=== PATIENT | male | born 1980 | race Caucasian/White ===

== ENCOUNTER 2019-10-04 16:41 | Observation (INO) | payer OTHER ==
[2019-10-04] MEDS ORDERED: PANTOPRAZOLE 40 MG/10 ML VIAL IVP STA (17:19)
[2019-10-04] MEDS ORDERED: MAG HYDROX/AL HYDROX/SIMETH 30 ML, HYOSCYAMINE ELIXIR 10 ML PO STA ×2 (17:25)
[2019-10-04] MEDS ORDERED: HYDROmorphone 1 MG/ML 1 ML SYRINGE IVP STA (17:32)
--- NOTE | 2019-10-04 17:33 | ED ---
General Adult HPI - General Chief complaint: Chest Pain Stated complaint: Chest Pain Time Seen by Provider: 10/04/19 17:03 Source: patient, RN notes reviewed, old records reviewed Mode of arrival: wheelchair Limitations: no limitations - History of Present Illness Initial comments: 39-year-old male presents for evaluation of chest pain. Pain began appr oximately one hour prior to arrival. She was associated with some nausea. He has no known history of coronary artery disease. No history DVT or PE. He's been dealing with some intermittent indigestion gastric reflux for the past several weeks. He denies any preceding exertional chest pain. Pain today began at rest. Substernal chest pain with associated nausea and diaphoresis.patient does report radiation to his back. no abdominal pain. No extremity pain. No numbness or tingling. No fever or chills. No cough. No history of gallstones, no history of pancreatitis, no reported alcohol abuse. - Related Data Home Medications Medication Instructions Recorded Confirmed No Known Home Medications 10/04/19 10/04/19 Allergies Allergy/AdvReac Type Severity Reaction Status Date / Time No Known Allergies Allergy Verified 10/04/19 20:06 Review of Systems ROS Statement: Those systems with pertinent positive or pertinent negative responses have been documented in the HPI. ROS Other: All systems not noted in ROS Statement are negative. Past Medical History Past Medical History: No Reported History History of Any Multi-Drug Resistant Organisms: None Reported Additional Past Surgical History / Comment(s): hip Past Psychological History: No Psychological Hx Reported Smoking Status: Never smoker Past Alcohol Use History: None Reported Past Drug Use History: None Reported General Exam Limitations: no limitations General appearance: alert, in no apparent distress Head exam: Present: atraumatic, normocephalic Eye exam: Present: normal appearance, PERRL ENT exam: Present: normal exam Neck exam: Present: normal inspection. Absent: tenderness, meningismus Respiratory exam: Present: normal lung sounds bilaterally. Absent: respiratory distress, wheezes, rhonchi Cardiovascular Exam: Present: regular rate, normal rhythm GI/Abdominal exam: Present: soft. Absent: distended, tenderness Extremities exam: Present: normal inspection, normal capillary refill, other (bilateral radial pulses 2+ and symmetric). Absent: pedal edema Neurological exam: Present: alert, oriented X3, CN II-XII intact. Absent: motor sensory deficit Psychiatric exam: Present: normal affect, normal mood Skin exam: Present: warm, intact, diaphoretic. Absent: cyanosis Course Vital Signs 10/04/19 10/04/19 10/04/19 16:43 19:03 20:38 Temperature 97.5 F L Pulse Rate 62 47 L 50 L Respiratory 18 18 18 Rate Blood Pressure 151/102 148/89 143/94 O2 Sat by Pulse 99 100 100 Oximetry - Reevaluation(s) Reevaluation #1: 10/04/19 20:04 patient resting comfortably, pain significantly improved no more episodes of vomiting. Reevaluation #2: 10/04/19 20:39 reevaluated, resting comfortably, no chest pain or abdominal pain EKG Findings - EKG Comments: EKG Findings:: EKG obtained 1655, sinus bradycardia with sinus arrhythmia, incomplete right bundle-branch block no ST segment elevation rate of 56, ID interval 150, QRS duration 108, QTC 432. EKG obtained at 1730, marked sinus bradycardia with a rate of 45, incomplete right bundle branch block, ID interval 150, QRS duration 106, QTC [address] segment elevation. EKG obtained at 1822 marked sinus bradycardia with sinus arrhythmia incomplete right bundle-branch block, rate of 46, ID interval 152, QRS duration 104, QTC 427, no ST segment elevation Medical Decision Making - Medical Decision Making 39-year-old male presenting with sudden onset substernal chest pain. Patient appears uncomfortable on initial evaluation he is diaphoretic. Mildly hypertensive. He has pain radiating from his chest to his back. He has one episode of vomiting while in the emergency department. Patient is bradycardic with otherwise stable vitals. He has an EKG showing an incomplete right bundle- branch block. No ST segment elevation on serial EKGs. Chest x-rays obtained, negative for acute carpal disease, normal mediastinum. He has a normal CBC no leukocytosis, stable hemoglobin. CMP shows mild elevation in serum creatinine at 1.28 with no baseline. Bilirubin 1.5, EST ALT and alkaline phosphatase within normal limits. D-dimer is negative. Initial troponin is negative. CT angiography is performed given the pain, diaphoresis and radiation through to his back, concern for dissection. This is negative for dissection, no acute intrathoracic or intra-abdominal process. Patient reevaluated after symptomatic treatment and is feeling better. patient still experiencing intermittent substernal chest pain, which is described as a pressure or tightness. case discussed with Dr. Heredia will accept admission. patient will be admitted for close monitoring, telemetry, serial cardiac enzymes, cardiology consultation. - Lab Data Result diagrams: 10/04/19 17:30 10/04/19 17:30 Lab Results 10/04/19 10/04/19 10/04/19 Range/Units 17:30 17:30 17:30 WBC 9.3 (3.8-10.6) k/uL RBC 5.20 (4.30-5.90) m/uL Hgb 14.6 (13.0-17.5) gm/dL Hct 44.4 (39.0-53.0) % MCV 85.4 (80.0-100.0) fL MCH 28.2 (25.0-35.0) pg MCHC 33.0 (31.0-37.0) g/dL RDW 12.0 (11.5-15.5) % Plt Count 355 (150-450) k/uL Neutrophils % 69 % Lymphocytes % 22 % Monocytes % 5 % Eosinophils % 2 % Basophils % 0 % Neutrophils # 6.4 (1.3-7.7) k/uL Lymphocytes # 2.1 (1.0-4.8) k/uL Monocytes # 0.5 (0-1.0) k/uL Eosinophils # 0.2 (0-0.7) k/uL Basophils # 0.0 (0-0.2) k/uL PT (9.0-12.0) sec INR (<1.2) APTT (22.0-30.0) sec D-Dimer (<0.60) mg/L FEU Sodium 140 (137-145) mmol/L Potassium 4.1 (3.5-5.1) mmol/L Chloride 104 (98-107) mmol/L Carbon Dioxide 28 (22-30) mmol/L Anion Gap 8 mmol/L BUN 19 (9-20) mg/dL Creatinine 1.28 H (0.66-1.25) mg/dL Est GFR (CKD-EPI)AfAm 81 (>60 ml/min/1.73 sqM) Est GFR (CKD-EPI)NonAf 70 (>60 ml/min/1.73 sqM) Glucose 97 (74-99) mg/dL Calcium 9.6 (8.4-10.2) mg/dL Magnesium 1.9 (1.6-2.3) mg/dL Total Bilirubin 1.5 H (0.2-1.3) mg/dL AST 32 (17-59) U/L ALT 31 (4-49) U/L Alkaline Phosphatase 100 (38-126) U/L Troponin I (0.000-0.034) ng/mL NT-Pro-B Natriuret Pep 21 pg/mL Total Protein 7.0 (6.3-8.2) g/dL Albumin 4.5 (3.5-5.0) g/dL Lipase 67 (23-300) U/L 10/04/19 10/04/19 10/04/19 Range/Units 17:30 17:30 19:40 WBC (3.8-10.6) k/uL RBC (4.30-5.90) m/uL Hgb (13.0-17.5) gm/dL Hct (39.0-53.0) % MCV (80.0-100.0) fL MCH (25.0-35.0) pg MCHC (31.0-37.0) g/dL RDW (11.5-15.5) % Plt Count (150-450) k/uL Neutrophils % % Lymphocytes % % Monocytes % % Eosinophils % % Basophils % % Neutrophils # (1.3-7.7) k/uL Lymphocytes # (1.0-4.8) k/uL Monocytes # (0-1.0) k/uL Eosinophils # (0-0.7) k/uL Basophils # (0-0.2) k/uL PT 11.4 (9.0-12.0) sec INR 1.1 (<1.2) APTT 27.4 (22.0-30.0) sec D-Dimer <0.17 (<0.60) mg/L FEU Sodium (137-145) mmol/L Potassium (3.5-5.1) mmol/L Chloride (98-107) mmol/L Carbon Dioxide (22-30) mmol/L Anion Gap mmol/L BUN (9-20) mg/dL Creatinine (0.66-1.25) mg/dL Est GFR (CKD-EPI)AfAm (>60 ml/min/1.73 sqM) Est GFR (CKD-EPI)NonAf (>60 ml/min/1.73 sqM) Glucose (74-99) mg/dL Calcium (8.4-10.2) mg/dL Magnesium (1.6-2.3) mg/dL Total Bilirubin (0.2-1.3) mg/dL AST (17-59) U/L ALT (4-49) U/L Alkaline Phosphatase (38-126) U/L Troponin I <0.012 <0.012 (0.000-0.034) ng/mL NT-Pro-B Natriuret Pep pg/mL Total Protein (6.3-8.2) g/dL Albumin (3.5-5.0) g/dL Lipase (23-300) U/L Disposition Clinical Impression: Chest pain, Sinus bradycardia, Incomplete right bundle branch block Disposition: ADMITTED IP TO THIS [facility] Condition: Stable Is patient prescribed a controlled substance at d/c from ED?: No Referrals: None,Stated [Primary Care Provider] - 1-2 days Time of Disposition: 19:45 Decision to Admit Reason: Admit from EC Decision Date: 10/04/19 Decision Time: 19:45
[2019-10-04] MEDS ORDERED: ONDANSETRON 4 MG/2 ML VIAL IVP STA ×2 (17:39→18:21)
[2019-10-04 17:57] LABS: Albumin 4.5 g/dL (3.5-5.0); Calcium 9.6 mg/dL (8.4-10.2); Magnesium 1.9 mg/dL (1.6-2.3); Potassium 4.1 mmol/L (3.5-5.1); Total Bilirubin 1.5 mg/dL (0.2-1.3)
[2019-10-04] MEDS ORDERED: SODIUM CHLORIDE 0.9% 500 ML 500 ML IV ONE ×2 (17:57→18:16)
[2019-10-04 18:03] LABS: D-Dimer <0.17 mg/L FEU (<0.60); INR 1.1 (<1.2); Partial Thromboplastin Time 27.4 sec (22.0-30.0); Prothrombin Time 11.4 sec (9.0-12.0)
--- NOTE | 2019-10-04 18:25 | XR ---
EXAMINATION TYPE: XR chest 2V DATE OF EXAM: 10/04/2019 COMPARISON: NONE HISTORY: Short of breath TECHNIQUE: 2 views FINDINGS: Heart and mediastinum are normal. Lungs are clear. Diaphragm is normal. Bony thorax appears normal. IMPRESSION: Normal chest. Normal heart.
[2019-10-04 18:28] LABS: Basophils % (A) 0 %; Eosinophils # (A) 0.2 k/uL (0-0.7); Eosinophils % (A) 2 %; HCT 44.4 % (39.0-53.0); HGB 14.6 gm/dL (13.0-17.5); Lymphocytes # (A) 2.1 k/uL (1.0-4.8); Lymphocytes % (A) 22 %; MCH 28.2 pg (25.0-35.0); MCV 85.4 fL (80.0-100.0); Mean Platelet Volume 7.4; Monocytes # (A) 0.5 k/uL (0-1.0); Monocytes % (A) 5 %; Neutrophils # (A) 6.4 k/uL (1.3-7.7); Neutrophils % (A) 69 %; Platelet Count 355 k/uL (150-450); WBC 9.3 k/uL (3.8-10.6)
[2019-10-04] MEDS: SODIUM CHLORIDE 0.9% 1,000 ML IV SCH (19:03)
--- NOTE | 2019-10-04 19:26 | CT ---
EXAMINATION TYPE: CT angio thor/abd pel aorta DATE OF EXAM: 10/04/2019 COMPARISON: None HISTORY: Chest pain/back pain. Pt denies any cardiac hx. CT DLP: 1917.9 mGycm Automated exposure control for dose reduction was used. CONTRAST: Performed with IV Contrast, patient injected with 100 mL of Isovue 370. There are 3-D post processed images. Heart size is normal. There is no pericardial effusion. There is small hiatal hernia. There is no ple ural effusion. There is mild subsegmental atelectasis at the lung bases. There is no evidence of renal obstruction. There is 3 mm calculus lower pole left kidney. Liver splee n pancreas gallbladder appear normal. Bile ducts are not dilated. There is no adrenal mass. Kidneys show satisfactory contrast opacification. There is no hydronephrosi s. There is no retroperitoneal adenopathy. Bladder distends smoothly. There is no inguinal hernia. Th ere is no free fluid in the pelvis. There are multiple sigmoid diverticula. Appendix appears normal. There is no mesenteric edema. There is no ascites or free air. There is no sign of a bowel obstructio n. Thoracic aorta appears normal. There is no aneurysm or dissection. There is normal contrast opacifica tion of the pulmonary arteries. There are no filling defects. Abdominal aorta appears normal. There is arterial flow in the celiac artery and superior mesenteric a rtery. There is arterial flow in both renal arteries. There is arterial flow in the iliac and femoral arteries bilaterally. I see no evidence of hemodynamic stenosis. There is no sign of contrast extrav asation. The bony structures are intact. Thoracic and lumbar spine are intact. There is no compression fractur e. IMPRESSION: Negative CT angiogram of the chest abdomen pelvis. No evidence of arterial aneurysm or dissection. No evidence of pulmonary embolism. Moderate sigmoid diverticulosis without diverticulitis. Normal appendix.
[2019-10-04] MEDS ORDERED: ASPIRIN 325 MG TAB PO STA (19:28)
[2019-10-04] MEDS ORDERED: NITROGLYCERIN-D5W PMX 50 MG in DEXTROSE/WATER 1 250ML.BAG IV ONE (19:40)
[2019-10-04] MEDS ORDERED: NALOXONE 0.4 MG/ML 1 ML VIAL IV PRN (20:12)
[2019-10-04] MEDS ORDERED: ONDANSETRON 4 MG/2 ML VIAL IVP PRN (20:12)
[2019-10-04] MEDS ORDERED: ACETAMINOPHEN TAB 325 MG TAB PO PRN (20:12)
[2019-10-04] MEDS ORDERED: HYDROmorphone 0.5 MG/0.5 ML SYRINGE IVP PRN (20:12)
[2019-10-04] MEDS ORDERED: MAG HYDROX/AL HYDROX/SIMETH 30 ML CUP PO PRN (23:45)
--- NOTE | 2019-10-05 00:04 | P.HPIM ---
History of Present Illness H&P Date: 10/04/19 Chief Complaint: chest pain 39-year-old male with no significant past medical history Patient comes in today with sudden onset chest pain reports that symptoms started around 3 PM today sudden onset he wasn't doing anything in particular denies any injury or any physical effort that precipitated the attacks of the leg felt chest pain epigastric central in nature radiating to the back associated with some sweating and then he vomited once nonbloody. Denies any heart racing, shortness of breath with that. Reports that the pain was 8 out of 10 in severity. Pain then improved to 2 out of 10 in severity when he was in the hospital and received pain medications. Denies any associated numbness tingling or radiation of the pain to the arms or jaw. He never felt anything like this before. Patient at baseline does a lot of work himself around the house never been limited by any chest pain. Otherwise denies any shortness of breath or wheezing denies any fevers or chills or coughing denies any diarrhea or changes in his bowel or urinary habits. Patient does admit to history of off-and-on symptoms of GERD. He also snores at night wakes up in the morning with sore throat sometimes sour taste in his throat and coughing that resolves once he gets up. Patient doesn't take any medications at home. Initial workup in the ED was unremarkable except for slightly elevated bilirubin and creatinine. His EKG showed right bundle branch block no old EKGs to compare. Patient admitted for atypical chest pain rule out acute coronary syndrome Review of Systems Pertinent positives as noted in HPI. All other systems were reviewed and are negative Past Medical History Past Medical History: No Reported History History of Any Multi-Drug Resistant Organisms: None Reported Past Surgical History: Orthopedic Surgery Additional Past Surgical History / Comment(s): hip Past Anesthesia/Blood Transfusion Reactions: Previous Problems w/ Anesthesia Additional Past Anesthesia/Blood Transfusion Reaction / Comment(s): unable to come off oxygen right away Past Psychological History: No Psychological Hx Reported Smoking Status: Never smoker Past Alcohol Use History: None Reported Past Drug Use History: None Reported - Past Family History Father Family Medical History: No Reported History Mother Family Medical History: No Reported History Medications and Allergies Home Medications Medication Instructions Recorded Confirmed Type No Known Home Medications 10/04/19 10/04/19 History Allergies Allergy/AdvReac Type Severity Reaction Status Date / Time No Known Allergies Allergy Verified 10/04/19 20:06 Physical Exam Vitals: Vital Signs Temp Pulse Pulse Resp BP BP Pulse Ox 10/04/19 20:59 98.1 F 61 16 128/79 97 10/04/19 20:45 55 L 18 140/87 98 10/04/19 20:38 50 L 18 143/94 100 10/04/19 19:03 47 L 18 148/89 100 10/04/19 16:43 97.5 F L 62 18 151/102 99 Intake and Output 10/04/19 10/04/19 10/05/19 14:59 22:59 06:59 Other: Weight 99.8 kg Constitutional: No acute distress, conversant, pleasant Eyes: Anicteric sclerae, moist conjunctiva, no lid-lag Pupils equal round reactive to light ENMT: NC/AT Oropharynx clear, no erythema, exudates Neck: Supple, FROM, no masses, or JVD No carotid bruits No thyromegaly Lungs: Clear to auscultation Clear to percussion Normal respiratory effort, no accessory muscle use Cardiovascular: Heart regular in rate and rhythm, No murmurs, gallops, or rubs No peripheral edema Abdominal: Soft Nontender, no guarding, rebound or rigidity Abdomen moving with respiration Normoactive bowel sounds No hepatomegaly, No splenomegaly No palpable mass No abdominal wall hernia noted Skin: Normal temperature, tone, texture, turgor No induration No subcutaneous nodules No rash, lesions No ulcers Extremities: No digital cyanosis No clubbing Pedal pulses intact and symmetrical Radial pulses intact and symmetrical No calf tenderness Psychiatric: Alert and oriented to person, place and time Appropriate affect fair judgment Neuro Muscles Strength 5/5 in all 4 extremities Sensation to light touch grossly present throughout Cranial nerves II-XII grossly intact No focal sensory deficits Lymphatics: no palpable cervical or supraclavicular , or inguinal lymph nodes Results CBC & Chem 7: 10/04/19 17:30 10/04/19 17:30 Labs: Abnormal Lab Results - Last 24 Hours (Table) 10/04/19 Range/Units 17:30 Creatinine 1.28 H (0.66-1.25) mg/dL Total Bilirubin 1.5 H (0.2-1.3) mg/dL Thrombosis Risk Factor Assmnt - Choose All That Apply Any of the Below Risk Factors Present?: No Assessment and Plan Assessment: 39-year-old male with no significant past medical history presented with sudden onset chest pain central and epigastric radiating straight to the back admitted under observation with anticipated length of stay less than two midnight to rule out acute coronary syndrome Plan: atypical chest pain rule out acute coronary syndrome. Unlikely cardiac History of chronic GERD Pain control Monitor vital signs Trend cardiac enzymes Cardiology consult Maalox PPI Acute kidney injury avoi d nephrotoxic meds IVF hydration mointor urine output follow up renal function patient is full code DVT prophylaxis heparin subcu 3 times a day Discussed with: Patient, ER,RN Anticipated length of stay less than [address]: home A total of 60 minutes was spent on the care of this complex patient more than 50% of the time was spent in counseling and care coordination.
[2019-10-05] MEDS: HEPARIN SODIUM,PORCINE 5,000 UNIT/ML 1 ML VIAL SQ SCH ×4 (00:30→23:30)
[2019-10-05 06:55] LABS: Basophils % (A) 0 %; Eosinophils # (A) 0.1 k/uL (0-0.7); Eosinophils % (A) 1 %; HCT 41.7 % (39.0-53.0); HGB 13.6 gm/dL (13.0-17.5); Lymphocytes # (A) 1.7 k/uL (1.0-4.8); Lymphocytes % (A) 20 %; MCH 28.2 pg (25.0-35.0); MCHC 32.7 g/dL (31.0-37.0); MCV 86.2 fL (80.0-100.0); Monocytes # (A) 0.5 k/uL (0-1.0); Monocytes % (A) 6 %; Neutrophils # (A) 6.1 k/uL (1.3-7.7); Neutrophils % (A) 72 %; Platelet Count 304 k/uL (150-450); RBC 4.84 m/uL (4.30-5.90); RDW 12.1 % (11.5-15.5); WBC 8.5 k/uL (3.8-10.6)
[2019-10-05 07:12] LABS: ALT 33 U/L (4-49); AST 29 U/L (17-59); African American GFR (CKD) >90 (>60 ml/min/1.73 sqM); Albumin 3.8 g/dL (3.5-5.0); Alkaline Phosphatase 77 U/L (38-126); Anion Gap 7 mmol/L; Blood Urea Nitrogen 13 mg/dL (9-20); Calcium 9.1 mg/dL (8.4-10.2); Carbon Dioxide 27 mmol/L (22-30); Chloride 107 mmol/L (98-107); Glucose 91 mg/dL (74-99); Non-African American GFR(CKD) >90 (>60 ml/min/1.73 sqM); Sodium 141 mmol/L (137-145); Total Bilirubin 1.9 mg/dL (0.2-1.3); Total Protein 6.2 g/dL (6.3-8.2)
[2019-10-05] MEDS ORDERED: PANTOPRAZOLE 40 MG/10 ML VIAL IV SCH (09:00)
--- NOTE | 2019-10-05 09:27 | P.CRDCN ---
History of Present Illness Consult date: 10/05/19 Requesting physician: Morro Mckenna Consult reason: chest pain Chief complaint: chest pain History of present illness: this is a pleasant 39-year-old gentleman with no documented history of hypertension, no diabetes, no hyperlipidemia, nonsmoker, no EtOH, no family history of premature coronary artery disease.he presents to the hospital with symptoms of chest tightness, he also states that he had chest tightness in his back between his shoulder blades. Patient did have some mild associated nausea with these symptoms. Over the past few weeks patient has been dealing with some what he feels as indigestion and epigastric reflux. Overall the patient is quite physically active, no major health concerns. He's had no recent fever or chills, no recent viral illness.chest x-ray performed this admission was normal.a CT angiogram of the chest abdomen and pelvis was performed which did not reveal any evidence of arterial aneurysm or dissection, no evidence of any pulmonary embolism.EKG shows a sinus bradycardia with no acute changes.I pressure on arrival here 150/102, heart rate in the 60s, 99% on room air.blood pressure this morning 106/60 with a heart rate of 50, 95% on room air.White blood cell count 8.5, hemoglobin 13.6, platelet count 304. D-dimer less than 0.17, sodium 141, potassium 4.0, BUN 13, creatinine 1.0.troponins negative 4. At the time of my examination this morning, patient denies any chest tightness or tightness in his scapula area, he just states that he feels very tired and has been feeling tired for the past few weeks. Past Medical History Past Medical History: No Reported History History of Any Multi-Drug Resistant Organisms: None Reported Past Surgical History: Orthopedic Surgery Additional Past Surgical History / Comment(s): hip Past Anesthesia/Blood Transfusion Reactions: Previous Problems w/ Anesthesia Additional Past Anesthesia/Blood Transfusion Reaction / Comment(s): unable to come off oxygen right away Past Psychological History: No Psychological Hx Reported Smoking Status: Never smoker Past Alcohol Use History: None Reported Past Drug Use History: None Reported - Past Family History Father Family Medical History: No Reported History Mother Family Medical History: No Reported History Medications and Allergies Home Medications Medication Instructions Recorded Confirmed Type No Known Home Medications 10/04/19 10/04/19 History Allergies Allergy/AdvReac Type Severity Reaction Status Date / Time No Known Allergies Allergy Verified 10/04/19 20:06 Physical Exam Vitals: Vital Signs Temp Pulse Pulse Resp BP BP Pulse Ox 10/05/19 04:00 98.0 F 52 L 18 106/69 95 10/05/19 00:00 55 L 16 109/64 97 10/04/19 20:59 98.1 F 61 16 128/79 97 10/04/19 20:45 55 L 18 140/87 98 10/04/19 20:38 50 L 18 143/94 100 10/04/19 19:03 47 L 18 148/89 100 10/04/19 16:43 97.5 F L 62 18 151/102 99 Intake and Output 10/04/19 10/05/19 10/05/19 22:59 06:59 14:59 Other: Voiding Method Toilet # Voids 2 Weight 99.8 kg PHYSICAL EXAMINATION: GENERAL:89-year-old gentleman in no acute distress at the time of my examination HEENT: Head is atraumatic, normocephalic. Pupils equal, round. Sclera anicteric. Conjunctiva are clear. Mucous membranes of the mouth are moist. Neck is supple. There is no elevated jugular venous pressure.no carotid bruit is heard. HEART EXAMINATION: [Heart S1, S2 normal. No murmur or gallop heard.] CHEST EXAMINATION:[ Lungs are clear to auscultation and precussion. No chest wall tenderness is noted on palpation or with deep breathing.] ABDOMEN: [ Soft, nontender. Bowel sounds are heard. No organomegaly noted]. EXTREMITIES:[ 2+ peripheral pulses with no evidence of peripheral edema and no calf tenderness noted]. NEUROLOGIC [patient is awake, alert and oriented 3.] . Results 10/05/19 06:20 10/05/19 06:20 Cardiac Enzymes 10/04/19 10/04/19 10/04/19 Range/Units 17:30 17:30 19:40 AST 32 (17-59) U/L Troponin I <0.012 <0.012 (0.000-0.034) ng/mL 10/04/19 10/05/19 10/05/19 Range/Units 23:09 06:20 06:20 AST 29 (17-59) U/L Troponin I <0.012 <0.012 (0.000-0.034) ng/mL Coagulation 10/04/19 Range/Units 17:30 PT 11.4 (9.0-12.0) sec APTT 27.4 (22.0-30.0) sec CBC 10/04/19 10/05/19 Range/Units 17:30 06:20 WBC 9.3 8.5 (3.8-10.6) k/uL RBC 5.20 4.84 (4.30-5.90) m/uL Hgb 14.6 13.6 (13.0-17.5) gm/dL Hct 44.4 41.7 (39.0-53.0) % Plt Count 355 304 (150-450) k/uL Comprehensive Metabolic Panel 10/04/19 10/05/19 Range/Units 17:30 06:20 Sodium 140 141 (137-145) mmol/L Potassium 4.1 4.0 (3.5-5.1) mmol/L Chloride 104 107 (98-107) mmol/L Carbon Dioxide 28 27 (22-30) mmol/L BUN 19 13 (9-20) mg/dL Creatinine 1.28 H 1.02 (0.66-1.25) mg/dL Glucose 97 91 (74-99) mg/dL Calcium 9.6 9.1 (8.4-10.2) mg/dL AST 32 29 (17-59) U/L ALT 31 33 (4-49) U/L Alkaline Phosphatase 100 77 (38-126) U/L Total Protein 7.0 6.2 L (6.3-8.2) g/dL Albumin 4.5 3.8 (3.5-5.0) g/dL Current Medications Generic Name Dose Route Start Last Admin Trade Name Freq PRN Reason Stop Dose Admin Acetaminophen 650 mg 10/04/19 20:12 Tylenol Tab PO Q6HR PRN Mild Pain or Fever > 100.5 Al Hydroxide/Mg Hydroxide 30 ml 10/04/19 23:45 Maalox PO Q4HR PRN GI Upset Aspirin 325 mg 10/05/19 09:00 Aspirin PO DAILY POOJA Heparin Sodium (Porcine) 5,000 unit 10/05/19 00:00 10/05/19 00:30 Heparin SQ Not Given Q8HR POOJA Hydromorphone HCl 0.5 mg 10/04/19 20:12 Dilaudid IVP Q3HR PRN Moderate Pain Sodium Chloride 1,000 mls @ 140 mls/hr 10/04/19 18:00 10/04/19 19:03 Saline 0.9% IV 75 mls/hr .Q7H9M POOJA Administration Nitroglycerin/Dextrose 50 mg/ 250 mls @ 1.5 mls/hr 10/04/19 19:40 10/04/19 20:28 IV Solution IV 10/05/19 19:39 5 mcg/min .Q24H ONE 1.5 mls/hr Administration Protocol 5 MCG/MIN Naloxone HCl 0.2 mg 10/04/19 20:12 Narcan IV Q2M PRN Opioid Reversal Ondansetron HCl 4 mg 10/04/19 20:12 Zofran IVP Q8HR PRN Nausea And Vomiting Pantoprazole Sodium 40 mg 10/05/19 07:30 Protonix PO AC-[id number] POOJA Intake and Output 10/04/19 10/05/19 10/05/19 22:59 06:59 14:59 Other: Voiding Method Toilet # Voids 2 Weight 99.8 kg 10/05/19 06:20 10/05/19 06:20 EKG Interpretations (text) EKG shows sinus bradycardia with no acute changes. Assessment and Plan Plan: assessment and plan #1 symptoms of chest tightness with tightness in the scapular area, associated nausea. Troponins are negative 4. EKG shows a sinus bradycardia with no acute changes. CT angiogram negative for any aneurysm or dissection, no pulmonary embolism #2 cardiac risk factors negative for hypertension, no diabetes, no hyperlipidemia, he is a nonsmoker, and has no family history of premature coronary artery disease Plan We will obtain an echocardiogram with Doppler study. Discontinue IV nitroglycerin drip. We will schedule the patient for a stress test tomorrow. Further recommendations to follow. DNP note has been reviewed, I agree with a documented findings and plan of care. Patient was seen and examined.
[2019-10-05] MEDS: ASPIRIN 325 MG TAB PO SCH (10:12)
[2019-10-05] MEDS: PANTOPRAZOLE 40 MG TABLET PO SCH (10:12)
--- NOTE | 2019-10-05 10:46 | P.PN ---
Subjective Progress Note Date: 10/05/19 Principal diagnosis: chest pain Patient was seen and examined. No acute events overnight. Patient reports complete resolution of his chest pain. He denies any shortness of breath or palpitations. No nausea or vomiting. No fever or chills. Objective - Vital Signs Vital signs: Vital Signs Temp 98.2 F 10/05/19 08:00 Pulse 54 L 10/05/19 08:00 Resp 16 10/05/19 08:00 BP 115/72 10/05/19 08:00 Pulse Ox 96 10/05/19 08:00 Intake & Output 10/04/19 10/05/19 10/05/19 18:59 06:59 18:59 Weight 99.79 kg 99.8 kg Other: Voiding Method Toilet # Voids 2 - Exam General: [non toxic], [no distress], [appears at stated age] Derm: [warm], [dry] Head: [atraumatic], [normocephalic], [symmetric] Eyes: [EOMI], [no lid lag], [anicteric sclera] Mouth: [no lip lesion], [mucus membranes moist] Cardiovascular: [S1S2 reg], [no murmur], [positive posterior tibial pulse bilateral], Lungs: [CTA bilateral], [no rhonchi, no rales] , [no accessory muscle use] Abdominal: [soft], [ nontender to palpation], [no guarding], [no appreciable organomegaly], [negative Kelly's] Ext: [no gross muscle atrophy], [no edema], [no contractures] Neuro: [no focal neuro deficits] Psych: [Alert], [oriented], [appropriate affect] - Labs CBC & Chem 7: 10/05/19 06:20 10/05/19 06:20 Labs: Abnormal Lab Results - Last 24 Hours (Table) 10/04/19 10/05/19 Range/Units 17:30 06:20 Creatinine 1.28 H (0.66-1.25) mg/dL Total Bilirubin 1.5 H 1.9 H (0.2-1.3) mg/dL Total Protein 6.2 L (6.3-8.2) g/dL Assessment and Plan Assessment: Chest pain, rule out acute coronary syndrome GERD Resolved: Acute kidney injury Patient's troponins have been negative 4 with EKG showing sinus bradycardia with sinus arrhythmia and incomplete RBBB. CT aorta is negative for aneurysm or dissection. No PE. Gallbladder and bile ducts appear normal. Plans: Stress test tomorrow. Nothing by mouth after midnight. Continue aspirin for now. Telemetry monitoring. Follow-up echocardiogram. Follow-up cardiology con sultation. Plans: Continue Protonix. [Patient with chest pain. Plans for stress test tomorrow. Likely DC in 1-2 days.]
[2019-10-05] MEDS: SODIUM CHLORIDE 0.9% 1,000 ML IV SCH (13:21)
[2019-10-06] MEDS: PANTOPRAZOLE 40 MG TABLET PO SCH (08:25)
[2019-10-06 09:35] VITALS: BP 135/82; PULSE 65; RESP 18; TEMP 97.6
--- NOTE | 2019-10-06 10:44 | ECHOS ---
STRESS ECHOCARDIOGRAM DATE OF SERVICE: 10/06/2019 INDICATIONS: Chest pain. MEDICATIONS: BASELINE HEART RATE: 67 BASELINE BLOOD PRESSURE: 112/56 MAXIMUM HEART RATE: 167 MAXIMUM BLOOD PRESSURE: 159/63 85% MPHR: 154 100% MPHR: 181 METS: 11.7 MAXIMUM STAGE REACHED: IV TOTAL EXERCISE TIME: 10 minutes CLINICAL INFORMATION: STRESS DATA: Heart rate 67, pressure is 112/56 mmHg. Baseline EKG showed sinus rhythm with an RBBB. The patient exercised on the treadmill according to Norman protocol for a total of 10 minutes and achieved 11.7 METs. Max heart rate was 167, which is about 92% of maximum predicted heart rate. Maximum blood pressure was 159/63 mmHg. Clinically the patient developed chest discomfort. The EKG did not show any significant ST or T- wave abnormalities concerning for ischemia. ECHOCARDIOGRAM IMAGES: On echocardiogram images from parasternal long axis view and parasternal short axis view, as well as apical 4 and 2 chamber view, were obtained as the baseline images, at the peak of the heart rate as well as on recovery. The echocardiogram images revealed good augmentation in the left ventricular systolic function without any evidence of wall motion abnormalities. CONCLUSION: 1. Excellent exercise tolerance. 2. Chest discomfort in response to exercise. 3. Normal EKG in response to exercise. 4. Normal echocardiogram in response to exercise. MMODL / IJN: [id number] /
--- NOTE | 2019-10-06 12:01 | ECHOF ---
Referral Reason:chest pain MEASUREMENTS -------- HEIGHT: 182.9 cm WEIGHT: 99.3 kg BP: RVIDd: 3.2 cm (< 3.3) IVSd: 1.2 cm (0.6 - 1.1) LVIDd: 4.6 cm (3.9 - 5.3) LVPWd: 1.3 cm (0.6 - 1.1) IVSs: 1.9 cm LVIDs: 3.0 cm LVPWs: 1.7 cm LAESV Index (A-L): 19.68 ml/m Ao Diam: 2.6 cm (2.0 - 3.7) AV Cusp: 2.4 cm (1.5 - 2.6) LA Diam: 3.5 cm (2.7 - 3.8) MV EXCURSION: 23.102 mm (> 18.000) MV EF SLOPE: 245 mm/s (70 - 150) EPSS: 0.4 cm MV E Florentino: 0.81 m/s MV DecT: 200 ms MV A Florentino: 0.75 m/s MV E/A Ratio: 1.08 RAP: 5.00 mmHg RVSP: 15.95 mmHg TAPSE: 29.50 mm FINDINGS -------- Sinus rhythm. This was a technically good study. The left ventricular size is normal. There is mild concentric left ventricular hypertrophy. Overa ll left ventricular systolic function is normal with, an EF between 55 - 60 %. The diastolic fillin g pattern is normal for the age of the patient 9.18. The right ventricle is normal in size. The right ventricular systolic function is normal. The left atrial size is normal. Normal LA size by volume 22+/-6 ml/m2. The right atrial size is normal. Interatrial and interventricular septum intact. The aortic valve is trileaflet and appears structurally normal. The mitral valve is normal. The mitral valve leaflets are mildly thickened. Mild mitral regurgita tion is present. The tricuspid valve appears structurally normal. Mild tricuspid regurgitation present. Right vent ricular systolic pressure is normal at < 35 mmHg. There is no pulmonic regurgitation present. The aortic root size is normal. Normal inferior vena cava with normal inspiratory collapse consistent with estimated right atrial pre ssure of 5 mmHg. There is no pericardial effusion. CONCLUSIONS -------- 1. Sinus rhythm. 2. This was a technically good study. 3. The left ventricular size is normal. 4. There is mild concentric left ventricular hypertrophy. 5. Overall left ventricular systolic function is normal with, an EF between 55 - 60 %. 6. The diastolic filling pattern is normal for the age of the patient 9.18 7. The right ventricle is normal in size. 8. The right ventricular systolic function is normal. 9. The left atrial size is normal. 10. Normal LA size by volume 22+/-6 ml/m2. 11. The right atrial size is normal. 12. Interatrial and interventricular septum intact. 13. The aortic valve is trileaflet and appears structurally normal. 14. The mitral valve is normal. 15. The mitral valve leaflets are mildly thickened. 16. Mild mitral regurgitation is present. 17. The tricuspid valve appears structurally normal. 18. Mild tricuspid regurgitation present. 19. Right ventricular systolic pressure is normal at < 35 mmHg. 20. There is no pulmonic regurgitation present. 21. The aortic root size is normal. 22. Normal inferior vena cava with normal inspiratory collapse consistent with estimated right atrial pressure of 5 mmHg. 23. There is no pericardial effusion. [employer]: Lilly Mcrae RDCS
[2019-10-06] MEDS: ASPIRIN 325 MG TAB PO SCH (12:11)
[2019-10-06] MEDS: HEPARIN SODIUM,PORCINE 5,000 UNIT/ML 1 ML VIAL SQ SCH (12:11)
--- NOTE | 2019-10-06 12:59 | PN ---
PROGRESS NOTE This patient was admitted with the symptoms of atypical chest pain. EKGs and cardiac enzymes were normal. Patient underwent a stress test. The stress test echocardiographic study does not show any evidence of ischemia. Patient is feeling well. Denies any chest pain or shortness of breath. The patient can be discharged home. We will follow him as an outpatient in 4 to 6 weeks. BENJAMIN / IZABELA: [id number] /
--- NOTE | 2019-10-06 13:04 | P.DS ---
Providers Date of admission: 10/04/19 20:12 Expected date of discharge: 10/06/19 Attending physician: Morro Mckenna MD Consults: 10/04/19 20:13 Consult Physician Routine Consulting Provider: Robert Ryder Consult Reason/Comments: CP Do you want consulting provider notified?: Yes Primary care physician: Stated None Hospital Course: discharge diagnosis atypical chest pain Essential hypertension acute kidney injury GERD Hospital course The patient is a 39-year-old male that was placed in observation status to rule out ACS after presented with atypical chest pain, workup included EKG that showed a right bundle-branch block, the patient's troponins were negative X4, d-dimer was less than 0.17. CT angiography of the chest abdomen pelvis was negative for any arterial aneurysm dissection, there was no evidence of PE. echocardiogramindicated preserved LVEF of 55-60% without any significant valvular abnormalities. stress echocardiogram showed excellent exercise tolerancethe normal EKG and echocardiogram in response to exercise. The patient was subsequently cleared for discharge it was noted that after hydration his acute kidney injury resolved as his creatinine returned to baseline. He was subsequently discharged home in stable condition. this discharge process took approximately 30 minutes Focused exam Cardiovascular: Regular rate and rhythm no murmurs rubs or gallops Patient Condition at Discharge: Stable Plan - Discharge Summary Discharge Rx Participant: No New Discharge Prescriptions: New Pantoprazole [Protonix] 40 mg PO AC-BRKFST #30 tablet. Discharge Medication List Pantoprazole [Protonix] 40 mg PO AC-BRKFST #30 tablet. 10/06/19 [Rx] Follow up Appointment(s)/Referral(s): None,Stated [Primary Care Provider] - 1-2 days (Please schedule appointment with a primary care doctor) Jeremy Johnson MD [STAFF PHYSICIAN] - 10/13/19 9:30 am (Sunday please arrive 15mins early with insurance/ID information) Patient Instructions/Handouts: Chest Pain (DC) Discharge Disposition: HOME SELF-CARE
== END 2019-10-06 13:40 | disposition home or self-care (01) ==
LOC: EC 16:41 → 3SCARD 20:12
PROVIDERS: ADMIT Internal Medicine; ATTEND Internal Medicine
DX: R07.89 Other chest pain (principal); I10 Essential (primary) hypertension; I45.10 Unspecified right bundle-branch block; K21.9 Gastro-esophageal reflux disease without esophagitis; N17.9 Acute kidney failure, unspecified
CPT/HCPCS: 96366 ×2; 96372; 96376; 96361; 96365; 96375; 99285; 36415; 93005; 93306; 93351; 85379; 83880; 80053 ×2; 85652; 83690; 83735; 84484 ×2; 85025 ×2; 85610; 85730; 71046; 71275; 74174; G0378 ×3; J1644; J2405; J1170; C9113; Q9967

== ENCOUNTER 2021-09-30 08:42 | Emergency (ER) | payer BC, OTHER ==
[2021-09-30] MEDS ORDERED: SODIUM CHLORIDE 0.9% 1,000 ML IV STA (09:13)
--- NOTE | 2021-09-30 09:18 | ED ---
General Adult HPI - General Chief complaint: Dizziness Stated complaint: Covid+, ALEKSEY Time Seen by Provider: 09/30/21 08:46 Source: patient Mode of arrival: EMS - History of Present Illness Initial comments: 41-year-old male presents to the emergency room for near syncope. Patient reports that he is is COVID-19 positive as of 4 days ago. He was diagnosed 3 days ago. Patient states this morning he was more short of breath. States he got up from his recliner to walk and get Motrin. When he was doing this he started to get very lightheaded. He went back to the couch and went to sleep but is unsure if he passed out. Patient is unvaccinated Patient has no other complaints at this time including chest pain, abdominal pain, nausea or vomiting, headache, or visual changes. - Related Data Home Medications Medication Instructions Recorded Confirmed No Known Home Medications 09/30/21 09/30/21 Allergies Allergy/AdvReac Type Severity Reaction Status Date / Time No Known Allergies Allergy Verified 09/30/21 09:45 Review of Systems ROS Statement: Those systems with pertinent positive or pertinent negative responses have been documented in the HPI. ROS Other: All systems not noted in ROS Statement are negative. Past Medical History Past Medical History: No Reported History History of Any Multi-Drug Resistant Organisms: None Reported Past Surgical History: Orthopedic Surgery Additional Past Surgical History / Comment(s): hip Past Anesthesia/Blood Transfusion Reactions: Previous Problems w/ Anesthesia Additional Past Anesthesia/Blood Transfusion Reaction / Comment(s): unable to come off oxygen right away Past Psychological History: No Psychological Hx Reported Past Alcohol Use History: None Reported Past Drug Use History: None Reported - Past Family History Father Family Medical History: No Reported History Mother Family Medical History: No Reported History General Exam General appearance: alert, in no apparent distress Head exam: Present: atraumatic Eye exam: Present: normal appearance, PERRL, EOMI. Absent: scleral icterus, conjunctival injection ENT exam: Present: normal exam, mucous membranes moist Neck exam: Present: normal inspection, full ROM. Absent: tenderness Respiratory exam: Present: normal lung sounds bilaterally. Absent: respiratory distress, wheezes Cardiovascular Exam: Present: regular rate, normal rhythm, normal heart sounds GI/Abdominal exam: Present: soft, normal bowel sounds. Absent: distended, tenderness Neurological exam: Present: alert Course Vital Signs 09/30/21 09/30/21 09/30/21 08:47 09:31 10:19 Temperature 99.6 F Pulse Rate 62 92 87 Respiratory 18 18 18 Rate Blood Pressure 115/79 100/70 105/70 O2 Sat by Pulse 95 94 L 96 Oximetry 09/30/21 09/30/21 09/30/21 11:14 12:00 14:11 Temperature 99.8 F H Pulse Rate 85 92 Respiratory 16 18 Rate Blood Pressure 111/82 119/69 O2 Sat by Pulse 97 98 98 Oximetry Medical Decision Making - Medical Decision Making Vitals are stable. Patient is well appearing. CBC and CMP are unremarkable. EKG is nonischemic. Troponin is negative. D-dimer negative. Chest x-ray shows no acute process. pt was given fluids. Patient able to ambulate any difficulty. No lightheadedness or syncope. Oxygenation 97% with ambulation on room air. Discussed antibodies with patient and he does prefer these be given. Discussed return parameters. He will follow-up with his doctor and return for any worsening symptoms. - Lab Data Result diagrams: 09/30/21 09:19 09/30/21 09:19 Lab Results 09/30/21 09/30/21 09/30/21 Range/Units 09:19 09:19 09:19 WBC 5.5 (3.8-10.6) k/uL RBC 5.09 (4.30-5.90) m/uL Hgb 15.3 (13.0-17.5) gm/dL Hct 45.6 (39.0-53.0) % MCV 89.6 (80.0-100.0) fL MCH 30.0 (25.0-35.0) pg MCHC 33.5 (31.0-37.0) g/dL RDW 12.7 (11.5-15.5) % Plt Count 286 (150-450) k/uL MPV 7.3 Neutrophils % 74 % Lymphocytes % 12 % Monocytes % 11 % Eosinophils % 1 % Basophils % 1 % Neutrophils # 4.1 (1.3-7.7) k/uL Lymphocytes # 0.6 L (1.0-4.8) k/uL Monocytes # 0.6 (0-1.0) k/uL Eosinophils # 0.1 (0-0.7) k/uL Basophils # 0.0 (0-0.2) k/uL PT 11.7 (9.0-12.0) sec INR 1.1 (<1.2) APTT 25.8 (22.0-30.0) sec D-Dimer (<0.60) mg/L FEU Sodium 137 (137-145) mmol/L Potassium 4.4 (3.5-5.1) mmol/L Chloride 102 (98-107) mmol/L Carbon Dioxide 24 (22-30) mmol/L Anion Gap 11 mmol/L BUN 14 (9-20) mg/dL Creatinine 1.11 (0.66-1.25) mg/dL Est GFR (CKD-EPI)AfAm >90 (>60 ml/min/1.73 sqM) Est GFR (CKD-EPI)NonAf 82 (>60 ml/min/1.73 sqM) Glucose 122 H (74-99) mg/dL Calcium 9.0 (8.4-10.2) mg/dL Magnesium 1.7 (1.6-2.3) mg/dL Total Bilirubin 0.7 (0.2-1.3) mg/dL AST 29 (17-59) U/L ALT 26 (4-49) U/L Alkaline Phosphatase 84 (38-126) U/L Troponin I (0.000-0.034) ng/mL Total Protein 6.7 (6.3-8.2) g/dL Albumin 4.3 (3.5-5.0) g/dL 09/30/21 09/30/21 Range/Units 09:19 09:19 WBC (3.8-10.6) k/uL RBC (4.30-5.90) m/uL Hgb (13.0-17.5) gm/dL Hct (39.0-53.0) % MCV (80.0-100.0) fL MCH (25.0-35.0) pg MCHC (31.0-37.0) g/dL RDW (11.5-15.5) % Plt Count (150-450) k/uL MPV Neutrophils % % Lymphocytes % % Monocytes % % Eosinophils % % Basophils % % Neutrophils # (1.3-7.7) k/uL Lymphocytes # (1.0-4.8) k/uL Monocytes # (0-1.0) k/uL Eosinophils # (0-0.7) k/uL Basophils # (0-0.2) k/uL PT (9.0-12.0) sec INR (<1.2) APTT (22.0-30.0) sec D-Dimer 0.18 (<0.60) mg/L FEU Sodium (137-145) mmol/L Potassium (3.5-5.1) mmol/L Chloride (98-107) mmol/L Carbon Dioxide (22-30) mmol/L Anion Gap mmol/L BUN (9-20) mg/dL Creatinine (0.66-1.25) mg/dL Est GFR (CKD-EPI)AfAm (>60 ml/min/1.73 sqM) Est GFR (CKD-EPI)NonAf (>60 ml/min/1.73 sqM) Glucose (74-99) mg/dL Calcium (8.4-10.2) mg/dL Magnesium (1.6-2.3) mg/dL Total Bilirubin (0.2-1.3) mg/dL AST (17-59) U/L ALT (4-49) U/L Alkaline Phosphatase (38-126) U/L Troponin I <0.012 (0.000-0.034) ng/mL Total Protein (6.3-8.2) g/dL Albumin (3.5-5.0) g/dL Disposition Clinical Impression: COVID-19, Lightheadedness Disposition: HOME SELF-CARE Condition: Good Instructions (If sedation given, give patient instructions): Coronavirus Disease 2019 (COVID-19), Near Syncope (ED) Additional Instructions: Please follow-up with your doctor in one to 2 days. Return to the emergency room for any worsening symptoms. Is patient prescribed a controlled substance at d/c from ED?: No Referrals: Karina Walker MD [STAFF PHYSICIAN] - 1-2 days Time of Disposition: 11:44
[2021-09-30 09:40] LABS: Basophils % (A) 1 %; Eosinophils # (A) 0.1 k/uL (0-0.7); Eosinophils % (A) 1 %; HCT 45.6 % (39.0-53.0); HGB 15.3 gm/dL (13.0-17.5); Lymphocytes # (A) 0.6 k/uL (1.0-4.8); Lymphocytes % (A) 12 %; MCHC 33.5 g/dL (31.0-37.0); MCV 89.6 fL (80.0-100.0); Mean Platelet Volume 7.3; Monocytes # (A) 0.6 k/uL (0-1.0); Monocytes % (A) 11 %; Neutrophils # (A) 4.1 k/uL (1.3-7.7); Neutrophils % (A) 74 %; Platelet Count 286 k/uL (150-450); RBC 5.09 m/uL (4.30-5.90); RDW 12.7 % (11.5-15.5); WBC 5.5 k/uL (3.8-10.6)
[2021-09-30 09:49] LABS: INR 1.1 (<1.2); Partial Thromboplastin Time 25.8 sec (22.0-30.0); Prothrombin Time 11.7 sec (9.0-12.0)
--- NOTE | 2021-09-30 09:51 | XR ---
EXAMINATION TYPE: XR chest 2V DATE OF EXAM: 09/30/2021 COMPARISON: 10/04/2019 INDICATION: Syncope difficulty in breathing TECHNIQUE: Frontal and lateral views of the chest are obtained. FINDINGS: The heart size is normal. The pulmonary vasculature is normal. The lungs are clear. No pneumothorax is evident. IMPRESSION: 1. No acute pulmonary process.
[2021-09-30 09:58] LABS: ALT 26 U/L (4-49); AST 29 U/L (17-59); African American GFR (CKD) >90 (>60 ml/min/1.73 sqM); Albumin 4.3 g/dL (3.5-5.0); Alkaline Phosphatase 84 U/L (38-126); Anion Gap 11 mmol/L; Blood Urea Nitrogen 14 mg/dL (9-20); Carbon Dioxide 24 mmol/L (22-30); Chloride 102 mmol/L (98-107); Glucose 122 mg/dL (74-99); Magnesium 1.7 mg/dL (1.6-2.3); Non-African American GFR(CKD) 82 (>60 ml/min/1.73 sqM); Sodium 137 mmol/L (137-145); Total Bilirubin 0.7 mg/dL (0.2-1.3); Total Protein 6.7 g/dL (6.3-8.2)
[2021-09-30 10:42] LABS: Potassium 4.4 mmol/L (3.5-5.1)
[2021-09-30] MEDS ORDERED: CASIRIVIMAB (REGN10933) (EUA) 600 MG, IMDEVIMAB (REGN10987) (EUA) 600 MG in SODIUM CHLO... IVPB ONE (11:45)
[2021-09-30] MEDS ORDERED: SODIUM CHLORIDE 0.9% 50 ML IVPB ONE (12:15)
[2021-09-30 14:14] VITALS: BP 119/69; PULSE 92; RESP 18; TEMP 99.8
== END 2021-09-30 14:19 | disposition home or self-care (01) ==
LOC: EC 08:42
DX: U07.1 COVID-19 (principal); R42 Dizziness and giddiness
CPT/HCPCS: 99285; 96360; 96361 ×2; 36415; 93005; 85379; 80053; 83735; 84484; 85025; 85610; 85730; 71046; Q0244

== ENCOUNTER → 2023-09-21 | Outpatient (CLI) | payer BC | END | disposition home or self-care (01) | LOC: LABWHC1 13:45 | DX: Z00.00 Encounter for general adult medical examination without abnormal findings (principal) ==

== ENCOUNTER → 2023-10-23 | Outpatient (CLI) | payer BC ==
[2023-10-23 20:55] LABS: Urine Alcohol Negative (Negative); Urine Barbiturate Negative (Negative); Urine Cocaine Negative (Negative); Urine Methadone Negative (Negative); Urine Opiates Negative (Negative); Urine Phencyclidine Negative (Negative)
== END | disposition home or self-care (01) ==
LOC: LABWHC1 11:43
PROVIDERS: ATTEND Family Medicine
DX: F90.0 Attention-deficit hyperactivity disorder, predominantly inattentive type (principal)
CPT/HCPCS: 80306